=== PATIENT | female | born 1955 | race Caucasian/White ===

== ENCOUNTER 2017-02-23 09:34 | Inpatient (IN) | payer BC ==
[~2017-02-23] VITALS: Ht 165.1 cm; Wt 47.3 kg
[~2017-02-23 09:34] MED LIST: AUG500 PO; AZE137NAPT NS; BUD8.6RPT NS; BUDRES25; ESOM10SU2 PO; ESOM20CA31 PO; PER PO; PRE20 PO
[2017-02-23] MEDS ORDERED: HYDR-2966 PO (09:52)
[2017-02-23] MEDS ORDERED: GI COCKTAIL 60 ML BTL PO PRN (09:55)
[2017-02-23] MEDS ORDERED: PANTOPRAZOLE SOD(*)40 MG VIAL 80 MG in NS(*) 0.9% 100 ML BAG 100 ML IVPB ONE (09:55)
[2017-02-23] MEDS ORDERED: NS(*) 0.9% 1000 ML BAG 1,000 ML IV ONE (09:56)
[2017-02-23] MEDS: NS(*) 0.9% 1000 ML BAG 1,000 ML IV ONE ×2 (09:56→10:45)
--- NOTE | 2017-02-23 09:56 | ER Report ---
History and Physical Time Seen By MD: 09:54 Hx. of Stated Complaint: Patient reporting stomach pain. Dx with stomach ulcer a week ago. States she feels like "its a ball of acid in my stomach". HPI/ROS CHIEF COMPLAINT: Abdominal gastric discomfort HISTORY OF PRESENT ILLNESS: Patient is a 60-year-old female known history of gastric ulcers comes emergency Department with worsening pain over the last 2-3 weeks so that she's been eating less and has had some weight loss patient states less than hysteroscope was several years ago saw her primary care put her on Zantac and Nathaniel Prevacid she's had some relief but last couple days was eating more and has had some discomfort. Patient states pain is localized to the abdominal area primarily epigastrium without radiation no nausea vomiting no diarrhea no chest pain or fever chills or sweats or additional complaints noted REVIEW OF SYSTEMS: Respiratory: No cough, no dyspnea. Cardiovascular: No chest pain, no palpitations. Gastrointestinal: Epigastric abdominal pain no vomiting Musculoskeletal: No back pain. Remainder of the 14 system rev: Yes Allergies: Coded Allergies: Penicillins (Verified Allergy, Severe, RASH, LOW B/P, SYNCOPE, 06/27/10) Iodinated Contrast- Oral and IV Dye (Verified Allergy, Mild, RASH, 06/27/10) iodine (Verified Allergy, Mild, RASH, 06/27/10) Home Meds Reported Medications Hydrochlorothiazide (HYDROCHLOROTHIAZIDE) 25 Mg Tablet, 1 TAB PO QDAY, TAB 02/23/17 Discontinued Reported Medications Budesonide (Rhinocort Aqua) 8.6 Gm [place], 1 SPRAY NS, 0 Refills 06/27/10 Azelastine Hcl (Astelin) 137 Mcg [place].pump, 1 SPRAY NS, 0 Refills 137 MCG/ACTUATION 06/27/10 Reviewed Nurses Notes: Yes Old Medical Records Reviewed: Yes Hx Smoking: No Constitutional Vital Sign - Last 24 Hours 02/23/17 02/23/17 02/23/17 02/23/17 09:46 09:51 10:00 10:04 Temp 98.9 Pulse 89 94 Resp 18 B/P (MAP) 123/83 123/83 (96) 115/57 (76) Pulse Ox 94 98 O2 Delivery Room Air 02/23/17 02/23/17 02/23/17 02/23/17 10:19 10:30 10:34 10:49 Pulse 75 78 76 B/P (MAP) 122/79 (93) Pulse Ox 95 99 100 02/23/17 02/23/17 02/23/17 02/23/17 11:00 11:04 11:19 11:24 Pulse 78 72 78 B/P (MAP) 109/80 (90) Pulse Ox 100 97 95 02/23/17 02/23/17 02/23/17 02/23/17 11:29 11:30 11:34 11:39 Pulse 77 79 B/P (MAP) 129/72 (91) Pulse Ox 94 97 89 Physical Exam General Appearance: The patient is alert, has no immediate need for airway protection and no current signs of toxicity. [ ] Eyes: Pupils equal and round no injection. Respiratory: Chest is non tender, lungs are clear to auscultation. Cardiac: regular rate and rhythm [ ] Gastrointestinal: Abdomen is soft mild tenderness to deep palpation in the epigastrium otherwise unremarkable exam or rebound guarding or masses Musculoskeletal: Neck: Neck is supple and non tender. Extremities have full range of motion and are non tender. Skin: No rashes or lesions. [ ] DIFFERENTIAL DIAGNOSIS: After history and physical exam differential diagnosis was considered for enteritis gastritis and gastric ulcers peptic ulcers pancreatitis Medical Decision Making Data Points Result Diagram: 02/23/17 1012 02/23/17 1012 Laboratory Hematology Test 02/23/17 09:46 02/23/17 10:12 Urine Color Yellow Urine Clarity Slightly-cloudy Urine pH 5.0 pH (4.8-9.5) Urine Specific [place] 1.023 Urine Protein 30 mg/dL (NEGATIVE) Urine Glucose (UA) Negative mg/dL (NEGATIVE) Urine Ketones Trace mg/dL (NEGATIVE) Urine Blood Small (NEGATIVE) Urine Nitrite Negative (NEGATIVE) Urine Bilirubin Negative (NEGATIVE) Urine Urobilinogen Negative mg/dL (0.2-1.9) Urine Leukocyte Esterase Negative (NEGATIVE) Urine RBC 23 /HPF (0-2/HPF) Urine WBC 2 /HPF (0-5/HPF) Urine Squamous Epithelial Cells Many /LPF (</=FEW) Urine Bacteria Negative /HPF (NONE-FEW) Urine Hyaline Casts Few /LPF (NONE-FEW) Urine Mucus Few /HPF (NONE-FEW) Red Blood Count 4.78 M/uL (4.17-5.56) Mean Corpuscular Volume 82.2 fL (80.0-96.0) Mean Corpuscular Hemoglobin 27.7 pg (26.0-33.0) Mean Corpuscular Hemoglobin Concent 33.7 g/dL (32.0-36.0) Red Cell Distribution Width 14.3 % (11.5-14.5) Mean Platelet Volume 8.2 fL (7.2-11.1) Neutrophils (%) (Auto) 68.4 % (39.4-72.5) Lymphocytes (%) (Auto) 18.6 % (17.6-49.6) Monocytes (%) (Auto) 10.1 % (4.1-12.4) Eosinophils (%) (Auto) 2.1 % (0.4-6.7) Basophils (%) (Auto) 0.8 % (0.3-1.4) Nucleated RBC Relative Count (auto) 0.0 /100WBC Neutrophils # (Auto) 5.4 K/uL (2.0-7.4) Lymphocytes # (Auto) 1.5 K/uL (1.3-3.6) Monocytes # (Auto) 0.8 K/uL (0.3-1.0) Eosinophils # (Auto) 0.2 K/uL (0.0-0.5) Basophils # (Auto) 0.1 K/uL (0.0-0.1) Nucleated RBC Absolute Count (auto) 0.00 K/uL Sodium Level 138 mmol/L (137-145) Potassium Level 3.8 mmol/L (3.5-5.0) Chloride Level 99 mmol/L (98-107) Carbon Dioxide Level 25 mmol/L (22-31) Blood Urea Nitrogen 26 mg/dl (7-18) Creatinine 1.50 mg/dl (0.52-1.04) Glomerular Filtration Rate Calc 35.1 Random Glucose 115 mg/dl (75-110) Calcium Level 10.5 mg/dl (8.4-10.2) Total Bilirubin 0.5 mg/dl (0.2-1.3) Aspartate Amino Transf (AST/SGOT) 31 U/L (0-35) Alanine Aminotransferase (ALT/SGPT) 29 U/L (0-56) Alkaline Phosphatase 138 U/L (0-126) Total Protein 8.4 gm/dl (6.3-8.2) Albumin 4.4 g/dl (3.5-5.0) Lipase 1204 U/L (23-300) Serum Alcohol < 10 mg/dl Chemistry Test 02/23/17 09:46 02/23/17 10:12 Urine Color Yellow Urine Clarity Slightly-cloudy Urine pH 5.0 pH (4.8-9.5) Urine Specific [place] 1.023 Urine Protein 30 mg/dL (NEGATIVE) Urine Glucose (UA) Negative mg/dL (NEGATIVE) Urine Ketones Trace mg/dL (NEGATIVE) Urine Blood Small (NEGATIVE) Urine Nitrite Negative (NEGATIVE) Urine Bilirubin Negative (NEGATIVE) Urine Urobilinogen Negative mg/dL (0.2-1.9) Urine Leukocyte Esterase Negative (NEGATIVE) Urine RBC 23 /HPF (0-2/HPF) Urine WBC 2 /HPF (0-5/HPF) Urine Squamous Epithelial Cells Many /LPF (</=FEW) Urine Bacteria Negative /HPF (NONE-FEW) Urine Hyaline Casts Few /LPF (NONE-FEW) Urine Mucus Few /HPF (NONE-FEW) White Blood Count 7.9 k/uL (4.5-11.0) Red Blood Count 4.78 M/uL (4.17-5.56) Hemoglobin 13.3 g/dL (12.0-16.0) Hematocrit 39.3 % (34.0-47.0) Mean Corpuscular Volume 82.2 fL (80.0-96.0) Mean Corpuscular Hemoglobin 27.7 pg (26.0-33.0) Mean Corpuscular Hemoglobin Concent 33.7 g/dL (32.0-36.0) Red Cell Distribution Width 14.3 % (11.5-14.5) Platelet Count 363 K/uL (150-450) Mean Platelet Volume 8.2 fL (7.2-11.1) Neutrophils (%) (Auto) 68.4 % (39.4-72.5) Lymphocytes (%) (Auto) 18.6 % (17.6-49.6) Monocytes (%) (Auto) 10.1 % (4.1-12.4) Eosinophils (%) (Auto) 2.1 % (0.4-6.7) Basophils (%) (Auto) 0.8 % (0.3-1.4) Nucleated RBC Relative Count (auto) 0.0 /100WBC Neutrophils # (Auto) 5.4 K/uL (2.0-7.4) Lymphocytes # (Auto) 1.5 K/uL (1.3-3.6) Monocytes # (Auto) 0.8 K/uL (0.3-1.0) Eosinophils # (Auto) 0.2 K/uL (0.0-0.5) Basophils # (Auto) 0.1 K/uL (0.0-0.1) Nucleated RBC Absolute Count (auto) 0.00 K/uL Glomerular Filtration Rate Calc 35.1 Calcium Level 10.5 mg/dl (8.4-10.2) Total Bilirubin 0.5 mg/dl (0.2-1.3) Aspartate Amino Transf (AST/SGOT) 31 U/L (0-35) Alanine Aminotransferase (ALT/SGPT) 29 U/L (0-56) Alkaline Phosphatase 138 U/L (0-126) Total Protein 8.4 gm/dl (6.3-8.2) Albumin 4.4 g/dl (3.5-5.0) Lipase 1204 U/L (23-300) Serum Alcohol < 10 mg/dl Toxicology Test 02/23/17 10:12 Serum Alcohol < 10 mg/dl Urinalysis Test 02/23/17 09:46 Urine Color Yellow Urine Clarity Slightly-cloudy Urine pH 5.0 pH (4.8-9.5) Urine Specific [place] 1.023 Urine Protein 30 mg/dL (NEGATIVE) Urine Glucose (UA) Negative mg/dL (NEGATIVE) Urine Ketones Trace mg/dL (NEGATIVE) Urine Blood Small (NEGATIVE) Urine Nitrite Negative (NEGATIVE) Urine Bilirubin Negative (NEGATIVE) Urine Urobilinogen Negative mg/dL (0.2-1.9) Urine Leukocyte Esterase Negative (NEGATIVE) Urine RBC 23 /HPF (0-2/HPF) Urine WBC 2 /HPF (0-5/HPF) Urine Squamous Epithelial Cells Many /LPF (</=FEW) Urine Bacteria Negative /HPF (NONE-FEW) Urine Hyaline Casts Few /LPF (NONE-FEW) Urine Mucus Few /HPF (NONE-FEW) ED Course/Re-evaluation ED Course ED clinical course medical decision making 61-year-old female comes in with epigastric pain initially told she had ulcers she has clearly a large distended abdomen primarily epigastric area this was confirmed with our surgeon who evaluated chest is pancreatitis unclear etiology she has no gallbladder [place] diluted with CAT scan plain CT did demonstrate significant dilatation of the gastric area [place] NG tube at this time for decompression will be meeting our hospitalist with our surgery on consult for evaluation of both pancreatitis and for the gastric distention Decision to Disposition Date: Feb 23, 2017 Decision to Disposition Time: 12:24 Depart Departure Latest Vital Signs Vital Signs Date Time Temp Pulse Resp B/P (MAP) Pulse Ox O2 Delivery O2 Flow Rate FiO2 02/23/17 11:39 89 02/23/17 11:34 79 02/23/17 11:30 129/72 (91) 02/23/17 09:46 98.9 18 Room Air Impression: Primary Impression: Pancreatitis Condition: Improved Disposition: Admitted from ER Referrals: PUMA PARADA (PCP) JOSEPH HEMPHILL MD Feb 23, 2017 09:56
[2017-02-23] MEDS ORDERED: ONDANSETRON 4 MG/2 ML VIAL IVP ONE (10:00)
[2017-02-23] MEDS ORDERED: ATRO/SCOPOL/HYOSCY/PB 5 ML ELX PO ONE (10:20)
[2017-02-23] MEDS ORDERED: LIDOCAINE 2% VISC SLN 15ML UDC PO ONE (10:20)
[2017-02-23] MEDS ORDERED: MAG HYD/AL HYD/SIMETH 30ML UDC PO ONE (10:20)
[2017-02-23 10:24] LABS: PLATELET COUNT, AUTOMATED 363 K/uL (150-450)
--- NOTE | 2017-02-23 11:46 | RADIOLOGY IMAGING REPORT ---
FACILITY: [facility] PATIENT NAME: Katie Triana : 1955 MR: [id number] V: [id number] EXAM DATE: ORDERING PHYSICIAN: JOSEPH HEMPHILL TECHNOLOGIST: Location: [facility] Patient: Katie Triana : 1955 Visit/Account:[id number] Date of Sevice: 02/23/2017 EXAMINATION: CT abdomen without IV contrast CT pelvis without IV contrast HISTORY: Pancreatitis. TECHNIQUE: Spiral scan was through the abdomen and pelvis without intravenous contrast. Sagittal a nd coronal reformatted images are also submitted. One of the following dose optimization techniques was utilized in the performance of this exam: Autom ated exposure control; adjustment of the mA and/or kV according to the patient's size; or use of an i terative reconstruction technique. Specific details can be referenced in the facility's radiology C T exam operational policy. COMPARISON: None. FINDINGS: Lower chest: Negative. Please note that without intravenous contrast, sensitivity to detection of parenchymal disease is land ited. Liver / biliary: Cholecystectomy. Otherwise negative. Pancreas: Negative. Spleen: Negative. Adrenal glands: Negative. Kidneys: Left renal atrophy. Otherwise negative. Pelvic structures: Hysterectomy. A small portion of the left side of the urinary bladder herniates downward along the left obturator muscle. Bowel: Postsurgical changes involving the stomach. Moderate gastric distention with no definite obstr uction. No bowel wall thickening. No small bowel obstruction. Normal appendix. Peritoneum / retroperitoneum / mesenteries: No free fluid or free air. Vessels: Negative. Musculoskeletal / Body wall: Mild degenerative disc disease and facet hypertrophy in the lumbar spine with convex leftward curvature. Mild bilateral hip osteoarthritis. Lymph node assessment: Negative. IMPRESSION: 1. Moderate gastric distention with no definite obstruction. 2. Otherwise no acute abnormality in the abdomen or pelvis. Report Dictated By: Cristiano Martinez MD at 02/23/2017 11:30 AM Report E-Signed By: Cristiano Martinez MD at 02/23/2017 11:43 AM WSN:[id number]
--- NOTE | 2017-02-23 13:32 | RADIOLOGY IMAGING REPORT ---
FACILITY: [facility] PATIENT NAME: Katie Triana : 1955 MR: [id number] V: [id number] EXAM DATE: ORDERING PHYSICIAN: JSOEPH HEMPHILL TECHNOLOGIST: Location: [facility] Patient: Katie Triana : 1955 Visit/Account:[id number] Date of Sevice: 02/23/2017 INDICATION: NG tube confirmation. EXAM DATE: 02/23/2017 12:39 PM COMPARISON: Same day CT abdomen and pelvis. FINDINGS: 2 supine AP radiographs of the abdomen. Esophagogastric tube terminates in the stomach. Most proximal sidehole is likely in the distal esoph aamir approximately 4.5 cm above the GE junction. Bowel gas pattern is nonobstructive. No pneumatosis, pneumoperitoneum or portal venous gas. No eviden ce of large volume ascites or mass. Moderate distention of the stomach as previously seen. Moderate to large amount stool in the colon. Surgical material in the stomach, surgical clips over the upper abdomen, cholecystectomy clips, multiple radiopaque pills in the gastric lumen. No acute osseous abnormality. IMPRESSION: Esophagogastric tube terminates in the stomach with most proximal sidehole approximately 4.5 cm of above the GE junction. This could be advanced to place all sideholes within the gastric lyndsey men. Report Dictated By: Doug Epps MD at 02/23/2017 1:20 PM Report E-Signed By: Doug Epps MD at 02/23/2017 1:28 PM WSN:[id number]
--- NOTE | 2017-02-23 13:53 | RADIOLOGY IMAGING REPORT ---
FACILITY: [facility] PATIENT NAME: Katie Triana : 1955 MR: [id number] V: [id number] EXAM DATE: ORDERING PHYSICIAN: JOSEPH HEMPHILL TECHNOLOGIST: Location: [facility] Patient: Katie Triana : 1955 Visit/Account:[id number] Date of Sevice: 02/23/2017 EXAMINATION: Abdominal radiograph single view HISTORY: Line placement. COMPARISON: 02/23/2017 at 1:05 PM. FINDINGS: A single AP supine view of the abdomen is obtained. Lines/tubes: Slight interval advancement of the enteric tube. The side port is probably in the proxi mal stomach but near the GE junction. Bowel gas pattern: Moderate to large amount of stool in the colon. Multiple small radiodensities pro jecting over the left upper quadrant are unchanged and likely represents some sort of ingested materi al. No dilated loops of bowel. Soft tissues: Upper abdominal surgical clips and suture lines. Bony structures: Convex leftward lumbar spine curvature. No acute osseous findings. Visualized lung bases: Negative. IMPRESSION: 1. The enteric tube has been advanced and now terminates in the proximal to mid stomach. The side por t is likely in the stomach but is near the GE junction. 2. Otherwise unchanged abdominal radiograph. Report Dictated By: Cristiano Martinez MD at 02/23/2017 1:48 PM Report E-Signed By: Cristiano Martinez MD at 02/23/2017 1:51 PM WSN:[id number]
[2017-02-23 13:54] VITALS: BP 142/76
[2017-02-23] MEDS ORDERED: CETI10CA8 PO (14:04)
[2017-02-23] MEDS ORDERED: NS(*) 0.9% 1000 ML BAG 1,000 ML IV PRN ×2 (15:25→16:10)
[2017-02-23] MEDS ORDERED: BISACODYL 10 MG SUPP PR PRN (15:30)
[2017-02-23] MEDS ORDERED: PANTOPRAZOLE SOD 40 MG IV VIAL IVP SCH (16:20)
[2017-02-23 19:14] VITALS: BP 142/80
--- NOTE | 2017-02-23 21:02 | History & Physical ---
History of Present Illness Chief Complaint The patient is a 61 year old female with PMH significant for PUD who presents with abdominal discomfort, decreased appetite and acid reflux since last week. History of Present Illness The patient states she started having increased acid reflux, decreased appetite with weight loss and abdominal discomfort last week. She was seen in her PCP's office last Thursday and started on Prilosec 40mg daily in the am and ranitidine 150mg at HS. She has a history of PUD requiring surgery many years ago with Dr. Saeed. She has not had problems since the surgery. The patient had a screening colonoscopy just over 10 years ago and it was normal. She is due for a repeat. She denies constipation and says she has been having normal BMs. She has not had nausea, vomiting or diarrhea. She has not had melena or hematochezia. She does not smoke or drink alcohol. The patient notes that she has not gotten any better since starting the Prilosec and Zantac and in fact continued to get worse. Today she could no longer tolerate her symptoms and presented to [facility] ER for evaluation. History Problems: (1) History of gastric surgery Comment: PUD with outlet obstruction. (2) S/P wrist surgery Comment: Fracture with ORIF, plates placed and later removed. (3) History of hand surgery Comment: L hand/wrist tendon repair after traumatic injury. (4) History of hysterectomy (5) Hx of cholecystectomy (6) Lower leg fracture Comment: Three surgeries for repair of fracture, ACL and LCL tears. (7) Normal colonoscopy (8) Seasonal allergies Home Meds Reported Medications Cetirizine Hcl (ZYRTEC) 10 Mg Capsule, 10 MG PO QDAY, CAPSULE 02/23/17 Hydrochlorothiazide (HYDROCHLOROTHIAZIDE) 25 Mg Tablet, 1 TAB PO QDAY, TAB 02/23/17 Discontinued Reported Medications Budesonide (Rhinocort Aqua) 8.[address], 1 SPRAY NS, 0 Refills 06/27/10 Azelastine Hcl (Astelin) [address]pump, 1 SPRAY NS, 0 Refills 137 MCG/ACTUATION 06/27/10 Allergies: Coded Allergies: Penicillins (Verified Allergy, Severe, RASH, LOW B/P, SYNCOPE, 06/27/10) Iodinated Contrast- Oral and IV Dye (Verified Allergy, Mild, RASH, 06/27/10) iodine (Verified Allergy, Mild, RASH, 06/27/10) Patient History: Diabetes mellitus (DM) BROTHER OR SISTER FH: CVA (cerebrovascular accident) BROTHER OR SISTER FH: HTN (hypertension) MOTHER BROTHER OR SISTER FH: emphysema FATHER Valvular heart disease MOTHER Other Social/Family Hx 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 She states she gets a lot of exercise at work and in the summer walks daily outside as well. She does not drink alcohol or use tobacco products. Hx Smoking: No Hx Alcohol Use: No Hx Substance Use Disorder: No History of IV Drug Use: No Review of Systems All Systems Reviewed/Normal: Yes, Except as Noted Constitutional: Weight Loss Gastrointestinal: Early Satiety, Abdominal Pain, Other (Acid reflux.) Exam Vital Signs Vital Signs Date Time Temp Pulse Resp B/P (MAP) Pulse Ox O2 Delivery O2 Flow Rate FiO2 02/23/17 19:30 100 02/23/17 19:30 Room Air 02/23/17 19:14 98.4 82 16 142/80 (100) General Appearance: Alert, Awake, No Acute Distress, Afebrile Neuro: No Gross deficits Cardiovascular: Regular Rate and Rhythm GI: Abd Soft and Non-Tender Extremities: Warm, Perfused, Other (No edema.) Integumentary: Skin Intact without Lesion / Mass Psych: Alert & Oriented X3, Appropriate Mood & Affect Medical Decision Making Data Points Result Diagram: 02/23/17 1012 02/23/17 1012 Item Value Date Time Random Glucose 115 mg/dl H 02/23/17 1012 Calcium Level 10.5 mg/dl H 02/23/17 1012 Total Bilirubin 0.5 mg/dl 02/23/17 1012 Aspartate Amino Transf (AST/SGOT) 31 U/L 02/23/17 1012 Alanine Aminotransferase (ALT/SGPT) 29 U/L 02/23/17 1012 Alkaline Phosphatase 138 U/L H 02/23/17 1012 Total Protein 8.4 gm/dl H 02/23/17 1012 Albumin 4.4 g/dl 02/23/17 1012 Lipase 1204 U/L H 02/23/17 1012 Serum Alcohol < 10 mg/dl 02/23/17 1012 Urine Color Yellow 02/23/17 0946 Urine Clarity Slightly-cloudy 02/23/17 0946 Urine pH 5.0 pH 02/23/17 0946 Urine Specific [place] 1.023 02/23/17 0946 Urine Protein 30 mg/dL 02/23/17 0946 Urine Glucose (UA) Negative mg/dL 02/23/17 0946 Urine Ketones Trace mg/dL 02/23/17 0946 Urine Blood Small 02/23/17 0946 Urine Nitrite Negative 02/23/17 0946 Urine Bilirubin Negative 02/23/17 0946 Urine Urobilinogen Negative mg/dL 02/23/17 0946 Urine Leukocyte Esterase Negative 02/23/17 0946 Urine RBC 23 /HPF 02/23/17 0946 Urine WBC 2 /HPF 02/23/17 0946 Urine Squamous Epithelial Cells Many /LPF H 02/23/17 0946 Urine Bacteria Negative /HPF 02/23/17 0946 Urine Hyaline Casts Few /LPF 02/23/17 0946 Urine Mucus Few /HPF 02/23/17 0946 EKG / Imaging Imaging FACILITY: [facility] PATIENT NAME: Katie Triana : 1955 MR: [id number] V: [id number] EXAM DATE: ORDERING PHYSICIAN: JOSEPH HEMPHILL TECHNOLOGIST: Location: [facility] [place] Patient: Katie Triana : 1955 Visit/Account:[id number] Date of Sevice: 02/23/2017 EXAMINATION: CT abdomen without IV contrast CT pelvis without IV contrast HISTORY: Pancreatitis. TECHNIQUE: Spiral scan was through the abdomen and pelvis without intravenous contrast. Sagittal and coronal reformatted images are also submitted. One of the following dose optimization techniques was utilized in the performance of this exam: Automated exposure control; adjustment of the mA and/ or kV according to the patient's size; or use of an iterative reconstruction technique. Specific details can be referenced in the facility's radiology CT exam operational policy. COMPARISON: None. FINDINGS: Lower chest: Negative. Please note that without intravenous contrast, sensitivity to detection of parenchymal disease is limited. Liver / biliary: Cholecystectomy. Otherwise negative. Pancreas: Negative. Spleen: Negative. Adrenal glands: Negative. Kidneys: Left renal atrophy. Otherwise negative. Pelvic structures: Hysterectomy. A small portion of the left side of the urinary bladder herniates downward along the left obturator muscle. Bowel: Postsurgical changes involving the stomach. Moderate gastric distention with no definite obstruction. No bowel wall thickening. No small bowel obstruction. Normal appendix. Peritoneum / retroperitoneum / mesenteries: No free fluid or free air. Vessels: Negative. Musculoskeletal / Body wall: Mild degenerative disc disease and facet hypertrophy in the lumbar spine with convex leftward curvature. Mild bilateral hip osteoarthritis. Lymph node assessment: Negative. IMPRESSION: 1. Moderate gastric distention with no definite obstruction. 2. Otherwise no acute abnormality in the abdomen or pelvis. Report Dictated By: Cristiano Martinez MD at 02/23/2017 11:30 AM Report E-Signed By: Cristiano Martinez MD at 02/23/2017 11:43 AM WSN:[id number] FACILITY: [facility] PATIENT NAME: Katie Triana : 1955 MR: [id number] V: [id number] EXAM DATE: ORDERING PHYSICIAN: JOSEPH HEMPHILL TECHNOLOGIST: Location: [facility] [place] Patient: Katie Triana : 1955 Visit/Account:[id number] Date of Sevice: 02/23/2017 INDICATION: NG tube confirmation. EXAM DATE: 02/23/2017 12:39 PM COMPARISON: Same day CT abdomen and pelvis. FINDINGS: 2 supine AP radiographs of the abdomen. Esophagogastric tube terminates in the stomach. Most proximal sidehole is likely in the distal esophagus approximately 4.5 cm above the GE junction. Bowel gas pattern is nonobstructive. No pneumatosis, pneumoperitoneum or portal venous gas. No evidence of large volume ascites or mass. Moderate distention of the stomach as previously seen. Moderate to large amount stool in the colon. Surgical material in the stomach, surgical clips over the upper abdomen , cholecystectomy clips, multiple radiopaque pills in the gastric lumen. No acute osseous abnormality. IMPRESSION: Esophagogastric tube terminates in the stomach with most proximal sidehole approximately 4.5 cm of above the GE junction. This could be advanced to place all sideholes within the gastric lumen. Report Dictated By: Doug Epps MD at 02/23/2017 1:20 PM Report E-Signed By: Doug Epps MD at 02/23/2017 1:28 PM WSN:[id number] Pre-Admit Course Medical Record Review: Yes Assessment and Plan Problems: (1) Elevated lipase Status: Acute Assessment & Plan: Lipase is elevated but noncontrast CT shows a normal pancreas. Abdominal exam without significant epigastric tenderness. Will make NPO except for ice chips and repeat lipase as well as amylase in the am. If her lipase and amylase remain elevated, consider MRI. (2) Gastric distention Status: Acute Assessment & Plan: KUB and CT show gastric distention without obvious point of obstruction. NG tube placed in ER. Will keep NPO for now. (3) Constipation Status: Acute Assessment & Plan: CT shows moderate to large amount of stool. Will give Dulcolax suppository. (4) Acid reflux Status: Acute Assessment & Plan: Place on Protonix IV while NPO. Monitor symptoms. (5) Acute renal failure Status: Acute Assessment & Plan: CT shows atrophy of left kidney and UA shows RBCs. The patient has had a hysterectomy. Her creatinine is elevated to 1.5. Bun is 26. She likely has acute renal failure but may have some chronic renal insufficiency as well. Will hydrate and repeat BMP in am. Time Spent on Plan of Care: < 30 min Venous Thromboembolism VTE Risk Physician Assess for VTE Risk: Yes Patient's VTE Risk: Low VTE Diagnostic Test 2 Days Prior to Admit: No Antithrombotics Is Pt On Any Antithrombotics?: Yes Exam Sepsis Risk: No Definite Risk MADISON SCANLON MD Feb 23, 2017 21:02
[2017-02-23 23:26] VITALS: BP 152/89
[2017-02-24 02:23] VITALS: BP 156/83
[2017-02-24] MEDS ORDERED: MAG HYD/AL HYD/SIMETH 30ML UDC PO PRN (02:30)
[2017-02-24 06:36] LABS: PLATELET COUNT, AUTOMATED 251 K/uL (150-450)
[2017-02-24 07:19] VITALS: BP 129/76
[2017-02-24] MEDS ORDERED: PANTOPRAZOLE SOD 40 MG IV VIAL IVP SCH (09:00)
[2017-02-24] MEDS ORDERED: ENOXAPARIN 40 MG/0.4ML SYR SC SCH (09:00)
[2017-02-24 09:34] VITALS: Ht 165.1 cm; Wt 47.3 kg
[2017-02-24 11:22] VITALS: BP 161/89
[2017-02-24 15:29] VITALS: BP 163/81
[2017-02-24] MEDS ORDERED: RANI-324 PO (15:42)
[2017-02-24] MEDS ORDERED: POLY17PO25 PO (15:47)
--- NOTE | 2017-02-24 16:05 | Hospitalist Depart ---
Discharge Summary Reason for Hosp/Final Diag: (1) Elevated lipase Status: Acute Hospital Course & Plan: She presented with abdominal discomfort and an elevated lipase. No CT evidence of pancreatitis and an exam with only mild discomfort. Her symptoms are much improved with relief of constipation. She tolerated oral intake today. Lipase is decreased but still elevated. She wants to go home. Will have her get a repeat amylase/lipase/cbc/cmp in a few days. (2) Gastric distention Status: Acute Hospital Course & Plan: KUB and CT show gastric distention without obvious point of obstruction. NG tube placed in ER, but didn't help her symptoms so removed. Her symptoms improved with relief of constipation. (3) Constipation Status: Acute Hospital Course & Plan: CT showed moderate to large amount of stool. Better with Dulcolax suppository. (4) Acid reflux Status: Acute Hospital Course & Plan: Continue Zantac. (5) Acute renal failure Status: Acute Hospital Course & Plan: CT shows atrophy of left kidney and UA shows RBCs. The patient has had a hysterectomy. Creatinine improved with hydration and it appears her baseline creatinine is 1.3. She was told about the atrophic kidney at that she should follow up with a Student Finance Advisor for evaluation. Departure Weight (Pounds): 104 Weight (Ounces): 5.0 Result Diagram: 02/24/17 0602/24/17 06 Imaging KUB - 1. The enteric tube has been advanced and now terminates in the proximal to mid stomach. The side port is likely in the stomach but is near the GE junction. 2. Otherwise unchanged abdominal radiograph. KUB - Esophagogastric tube terminates in the stomach with most proximal sidehole approximately 4.5 cm of above the GE junction. This could be advanced to place all sideholes within the gastric lumen. Abd/Pelvis CT - 1. Moderate gastric distention with no definite obstruction. 2. Otherwise no acute abnormality in the abdomen or pelvis. Condition: Improved Discharge: Home Discharge Instructions Home Meds Active Scripts Polyethylene Glycol 3350 (MIRALAX) 17 Gm Powd.pack, 17 GM PO DAILY Y for constipation, #1 PKT Prov:RANDOLPH CARABALLO MD 02/24/17 Reported Medications Ranitidine Hcl (ZANTAC) 150 Mg Tablet, 150 MG PO DAILY, TAB 02/24/17 Cetirizine Hcl (ZYRTEC) 10 Mg Capsule, 10 MG PO QDAY, CAPSULE 02/23/17 Hydrochlorothiazide (HYDROCHLOROTHIAZIDE) 25 Mg Tablet, 1 TAB PO QDAY, TAB 02/23/17 Discontinued Reported Medications Budesonide (Rhinocort Aqua) 8.6 Gm [place], 1 SPRAY NS, 0 Refills 06/27/10 Azelastine Hcl (Astelin) 137 Mcg [place].pump, 1 SPRAY NS, 0 Refills 137 MCG/ACTUATION 06/27/10 Diet: Regular Activity: As Tolerated Special Instructions: Get CBC, CMP, amylase, lipase blood tests in about 2-3 days to follow up on abnormalities. Call your PCP or go to the ER for return of the abdominal discomfort, nausea, or vomiting. Follow up with a Student Finance Advisor to evaluate the atrophic kidney Copies to: [employer] [employer] Venous Thromboembolism Antithrombotics Is Pt On Any Antithrombotics?: Yes RANDOLPH CARABALLO MD Feb 24, 2017 16:05
[2017-02-25] MEDS ORDERED: INFLUENZA VIRUS VAC 0.5 ML SYR IM ONLY ONE (09:00)
== END 2017-02-24 16:40 | disposition home or self-care (01) | DRG 392 ==
LOC: ER 09:46 → MED 12:55
PROVIDERS: ADMIT Internal Medicine; ATTEND Internal Medicine
DX: K59.00 Constipation, unspecified (principal); N17.9 Acute kidney failure, unspecified; K27.7 Chronic peptic ulcer, site unspecified, without hemorrhage or perforation; K21.9 Gastro-esophageal reflux disease without esophagitis; Z90.710 Acquired absence of both cervix and uterus; Z88.0 Allergy status to penicillin; Z88.8 Allergy status to other drugs, medicaments and biological substances; Z90.49 Acquired absence of other specified parts of digestive tract
CPT/HCPCS: 36415; 74018; 74176; 80320; 81001; 82040; 82150; 82247; 82310; 82374; 82435; 82565; 82947; 83690; 84075; 84132; 84155; 84295; 84443; 84450; 84460; 84520; 85025; 96361; 96374; 96375; 99285; C9113; J1650; J2405; J7030; J7050